=== PATIENT | female | born 1980 | race Caucasian/White ===

== ENCOUNTER → 2020-06-12 | Outpatient (CLI) | payer SELFPAY ==
--- NOTE | 2020-06-13 07:52 | RAD ---
EXAM: Knee,Right Complete CLINICAL HISTORY: PAIN IN RIGHT KNEE COMPARISON STUDY: None. TECHNICAL: 4 views of the knee. FINDINGS: Views of the knee demonstrate no fracture or dislocation. There is no acute bone abnormality. There is no visible effusion. IMPRESSION: NEGATIVE RIGHT KNEE. Electronically signed by: Guille Shabazz MD 06/13/2020 7:50 AM CDT
--- NOTE | 2020-06-13 07:53 | RAD ---
EXAM: Pelvis and hip CLINICAL HISTORY: Pain COMPARISON STUDY: None TECHNICAL: AP pelvis. FINDINGS: The pelvic ring is intact and negative. Both hips are in anatomic alignment. There is no identifiable fracture. There is no osseous abnormality. There are no significant degenerative changes IMPRESSION: Negative pelvis. Electronically signed by: Guille Shabazz MD 06/13/2020 7:51 AM CDT
== END ==
LOC: RAD 10:15
PROVIDERS: ATTEND Orthopaedic Surgery
DX: M25.551 Pain in right hip (principal); M25.561 Pain in right knee

== ENCOUNTER → 2020-06-17 | Outpatient (CLI) | payer OTHER, SELFPAY ==
--- NOTE | 2020-06-17 12:19 | MRI ---
Study: MRI of the Right Knee. Indication: BURSITIS OF KNEE Technique: Multiplanar, multi sequence MRI of the right knee was obtained without intravenous contrast. Comparison: Radiographs June 12, 2020 Findings: ACL, PCL, MCL, and lateral collateral ligament complex intact. Medial meniscus and lateral meniscus intact. No high-grade chondral defect medial or lateral knee compartments. Low-grade tendinosis quadriceps tendon insertion and patellar tendon insertion. There is significant marrow edema within the tibial tubercle extending into the metaphysis and plateau. Mild adjacent edema in the inferior aspect of Hoffa's fat pad. No fracture or tendon tear. Overlying subcutaneous edema noted without organized/drainable fluid collection. Mild cortical thickening of the tibial tubercle. Patella normally located. No high-grade chondral defect patellofemoral compartment. Tiny effusion. Impression: Extensive marrow edema at the tibial tubercle mild cortical remodeling as well as adjacent insertional patellar tendinosis. These findings likely reflect sequela of acute on chronic tug injury at the patellar tendon insertion. No tendon rupture or cortical displacement. Low-grade insertional quadriceps tendinosis. Tiny effusion. Intact menisci and ligaments. Electronically signed by: Rachid Busch MD 06/17/2020 12:17 PM CDT
== END ==
LOC: MRI 07:05
PROVIDERS: ATTEND Orthopaedic Surgery
DX: M70.51 Other bursitis of knee, right knee (principal); M25.461 Effusion, right knee; M76.51 Patellar tendinitis, right knee; M76.891 Other specified enthesopathies of right lower limb, excluding foot

== ENCOUNTER 2020-09-28 18:13 | Emergency (ER) | payer OTHER ==
[2020-09-28] MEDS: IBUPROFEN 200 MG TAB PO ONE (19:00)
[2020-09-28 19:57] VITALS: TEMP 98.6; O2SAT 100
--- NOTE | 2020-09-28 20:15 | RAD ---
EXAM: Ankle,Left 3 Views CLINICAL INDICATION: Left ankle pain COMPARISON: There is no previous study for comparison. FINDINGS: Three views of the left ankle reveal no fracture. The ankle mortise and talar dome are intact. The osseous structures appear intact and unremarkable. No radiopaque foreign bodies are identified. There is no bony destruction to suggest osteomyelitis. IMPRESSION: Negative left ankle radiographs. Electronically signed by: Robel Martinez MD 09/28/2020 8:14 PM [facility]
--- NOTE | 2020-09-28 20:36 | ED.PDOC ---
History of Present Illness - General Chief Complaint: Trauma Stated Complaint: left ankle pain Time Seen by Provider: 09/28/20 18:15 Source: patient Exam Limitations: no limitations - History of Present Illness Initial Comments: The patient is a 39-year-old female presents emergency room secondary to having tripped and fallen down stairs. The patient twisted her left ankle and has pain around the lateral malleolus. There is some mild bruising there. No gross bony deformity however. Passive range of motion appears intact. Sensation appears intact. Pulses present. No other significant injury according to her. No pain around the proximal fibula or knee. No pain over the fifth metatarsal. Timing/Duration: momentarily Severity: moderate Improving Factors: immobilization Worsening Factors: movement Associated Symptoms: denies symptoms Allergies/Adverse Reactions: Allergies NO KNOWN ALLERGY Allergy (Verified 09/28/20 18:54) Home Medications: Ambulatory Orders Iztvrpncntnsl-Obaq-Cuogtxpkja [Fioricet] 1 ea PO Q8H PRN #21 tab 09/28/20 Multiple Vitamin [Multivitamin Adult] 1 tab PO DAILY 09/28/20 Review of Systems - Review of Systems Constitutional: States: no symptoms reported EENTM: States: no symptoms reported Respiratory: States: no symptoms reported Cardiology: States: no symptoms reported Gastrointestinal/Abdominal: States: no symptoms reported Genitourinary: States: no symptoms reported Musculoskeletal: States: see HPI Skin: States: no symptoms reported Neurological: States: no symptoms reported Endocrine: States: no symptoms reported All other Systems: No Change from Baseline Past Medical History (General) - Patient Medical History Hx Seizures: No Hx Stroke: No Hx Asthma: No Hx Hypertension: No Hx Diabetes: No Surgical History: no surgical history Family Medical History - Family History Mother Family History: No Known Physical Exam - Physical Exam General Appearance: Alert, No apparent distress Eye Exam: bilateral normal Ears, Nose, Throat: hearing grossly normal Respiratory: no respiratory distress, no accessory muscle use Cardiovascular/Chest: normal peripheral pulses, no edema Peripheral Pulses: dorsalis pedis,left: 2+, posterior tibialis,left: 2+ Rectal Exam: deferred Extremity: normal range of motion, no pedal edema, no calf tenderness, normal capillary refill, other - See history of present illness. Neurologic: shift coordinator II-XII nml as tested, alert, normal mood/affect, oriented x 3 Skin Exam: normal color - Except mild bruising around the lateral malleolus on the left Comments: Vital Signs - 24 hr 09/28/20 09/28/20 09/28/20 18:50 19:51 20:00 Temperature 97.8 F 98.6 F Pulse Rate [ 114 H 97 H 90 pulse ox] Respiratory 18 18 18 Rate Blood Pressure 122/84 119/77 112/72 [right brachial ] O2 Sat by Pulse 99 100 100 Oximetry Progress - Progress Progress: 09/28/20 20:37 The patient is a 39-year-old female presented emergency room secondary to having tripped and fallen and apparently sprained her left ankle. This appears to be a lateral ankle sprain. X-ray showed no evidence of fracture or dislocation. Patient is having difficulty with weightbearing so she is going to be given a walking boot to use. Motrin or Aleve can be used twice daily for the next week or 2 to help reduce discomfort but should be taken with food to avoid stomach upset. She will also be written for short prescription of Fioricet to use for as needed pain relief. ER warnings are given. Keep routine follow-up with primary care doctor. arturo soares [phone] - Results/Orders Results/Orders: X-ray of the left ankle shows no fracture or obvious dislocation. See report for details. - EKG/XRAY/CT CT Ordered: No Departure - Departure Clinical Impression: Moderate left ankle sprain Qualifiers: Encounter type: initial encounter Qualified Code(s): S93.402A - Sprain of unspecified ligament of left ankle, initial encounter Disposition: Discharge to Home or Self Care Condition: Fair Departure Forms: ED Discharge - Pt. Copy, Patient Portal Self Enrollment Instructions: DI for Trauma, Ankle Sprain (DC) Diet: regular diet Activity: no exercise Referrals: Debra Malagon NP [Primary Care Provider] - 1-2 Weeks Prescriptions: Jdadivhypcakh-Vhob-Bdkwbtmmlv [Fioricet] 1 ea PO Q8H PRN #21 tab PRN Reason: Pain Home Medications: Ambulatory Orders Ypxmjbyvpjswy-Fffl-Mrfebhjcth [Fioricet] 1 ea PO Q8H PRN #21 tab 09/28/20 Multiple Vitamin [Multivitamin Adult] 1 tab PO DAILY 09/28/20 Additional Instructions: The patient is a 39-year-old female presented emergency room secondary to having tripped and fallen and apparently sprained her left ankle. This appears to be a lateral ankle sprain. X-ray showed no evidence of fracture or dislocation. Patient is having difficulty with weightbearing so she is going to be given a walking boot to use. Motrin or Aleve can be used twice daily for the next week or 2 to help reduce discomfort but should be taken with food to avoid stomach upset. She will also be written for short prescription of Fioricet to use for as needed pain relief. ER warnings are given. Keep routine follow-up with primary care doctor.
[2020-09-28] MEDS: ACETAMINOPHEN-CAFF-BUTALBITAL 1 EA TAB PO ONE (20:37)
[2020-09-28 20:48] VITALS: BP 117/82
== END 2020-09-28 20:48 | disposition home or self-care (01) ==
LOC: ER 18:13
DX: S93.402A Sprain of unspecified ligament of left ankle, initial encounter (principal); W10.9XXA Fall (on) (from) unspecified stairs and steps, initial encounter; Y92.9 Unspecified place or not applicable